=== PATIENT | female | born 1975 | race Asian ===

== ENCOUNTER → 2018-10-03 | Outpatient (CLI) | payer BC ==
[~2018-10-03] MED LIST: IOHEXOL 50 ML IV ONE
== END | disposition home or self-care (01) ==
LOC: SRD 09:10
PROVIDERS: ATTEND Specialist
DX: N92.6 Irregular menstruation, unspecified (principal); N97.9 Female infertility, unspecified
CPT/HCPCS: 74740; C1751; Q9967

== ENCOUNTER 2019-09-20 20:41 | Emergency (ER) | payer BC ==
[~2019-09-20] VITALS: Ht 152.4 cm; Wt 68.0 kg
[2019-09-20 20:46] VITALS: BP_SYST 126
--- NOTE | 2019-09-20 20:51 | NUR ---
Patient triaged and placed in waiting room. VSS and patient appears in no acute distress at this time. Accompanied by , awaiting available bed, and MD notified of need for MSE.
[2019-09-20 21:14] LABS: BILIRUBIN,URINE NEGATIVE (NEGATIVE); BLOOD, URINE NEGATIVE (NEGATIVE); CLARITY/URINE CLEAR (CLEAR); COLOR,URINE YELLOW (YELLOW); GLUCOSE,URINE NEGATIVE (NEGATIVE); KETONES,URINE 1+ (NEGATIVE); LEUKOCYTE ESTERASE ,URINE NEGATIVE (NEGATIVE); NITRITE, URINE NEGATIVE (NEGATIVE); PROTEIN URINE NEGATIVE (NEGATIVE); UROBILINOGEN,URINE 0.2 (0.2-1.0)
--- NOTE | 2019-09-20 23:26 | NUR ---
Patient to ER bed 8 to gown for evaluation. Side rails up.
--- NOTE | 2019-09-20 23:40 | NUR ---
Pt came to the ED for lower ABD pain which started aroun 1400 yesterday. Reports pain is throbbing and burning. States she ahd her HCG level 8 days ago but no ultrasound. Denies bleeding or vaginal discharge. No other complaints/injuries noted. Will cont. to monitor.
--- NOTE | 2019-09-21 | NUR ---
ER at bedside examining patient.
[2019-09-21 00:55] LABS: BASOPHILS % (AUTO) 0.6 % (0.0-2.0); EOSINOPHILS # (AUTO) 0.1 K/uL (0.0-0.4); HEMATOCRIT 39.1 % (36-48); HEMOGLOBIN 13.1 g/dL (12.0-16.0); LYMPHOCYTES # (AUTO) 1.6 K/uL (1.0-5.5); LYMPHOCYTES % (AUTO) 23.7 % (20.5-51.5); MEAN CORPUSCULAR HEMOGLOBIN 31 pg (27-31); MEAN CORPUSCULAR HGB CONC 33 % (32-36); MEAN CORPUSCULAR VOLUME 94 fL (79.0-98.0); MONOCYTES # (AUTO) 0.7 K/uL (0.0-1.0); MONOCYTES % (AUTO) 10.4 % (1.7-9.3); NEUTROPHILS # (AUTO) 4.3 K/uL (1.8-7.7); NEUTROPHILS % (AUTO) 63.3 % (40.0-70.0); PLATELET COUNT (AUTO) 223 K/uL (130-430); RED BLOOD CELL COUNT(AUTO) 4.18 MIL/uL (4.2-6.2); RED CELL DISTRIBUTION WIDTH 12.8 % (9.0-15.0); WHITE BLOOD COUNT (AUTO) 6.8 K/uL (4.8-10.8)
[2019-09-21 01:11] LABS: CREATININE 0.8 mg/dL (0.55-1.30); POTASSIUM 3.6 mmol/L (3.5-5.1)
[2019-09-21 01:37] LABS: ALBUMIN 3.4 g/dL (3.4-4.8)
--- NOTE | 2019-09-21 01:39 | NUR ---
Patient returned from Ultrasound in stable condition.
[2019-09-21 01:48] LABS: TOTAL BILIRUBIN 0.2 mg/dL (0.0-1.0)
--- NOTE | 2019-09-21 02:21 | NUR ---
Patient given written and verbal discharge instructions and verbalizes understanding. ER MD Cary discussed with patient the results and treatment provided. Patient in stable condition. ID arm band removed. No Rx given. Patient educated on pain management and to follow up with PMD. Pain Scale 0.Opportunity for questions provided and answered. Medication side effect fact sheet provided.
[2019-09-21 02:25] VITALS: BP_SYST 123
== END 2019-09-21 02:21 | disposition home or self-care (01) ==
LOC: SED 20:41
DX: O26.891 Other specified pregnancy related conditions, first trimester (principal); R10.2 Pelvic and perineal pain; Z3A.01 Less than 8 weeks gestation of pregnancy
CPT/HCPCS: 36415; 76801; 76817; 80053; 81003; 84702-TC; 85025; 86901; 99284

== ENCOUNTER 2019-10-06 09:23 | Emergency (ER) | payer BC ==
[~2019-10-06] VITALS: Ht 152.4 cm; Wt 68.0 kg
[2019-10-06 09:28] VITALS: BP_SYST 125
--- NOTE | 2019-10-06 09:28 | NUR ---
Patient to ER bed 7 to gown for evaluation. Side rails up.
--- NOTE | 2019-10-06 09:29 | NUR ---
Patient is awake, alert, and oriented x4. Patient reports that she noticed light vaginal bleeding after urinating yesterday, with brown spots showing up after wiping. This morning it was pink when she wiped. Patient is Para 1 0. She is also complaining of mild cramping in lower right abdmomen.
--- NOTE | 2019-10-06 09:36 | NUR ---
ER Dr. Ling at bedside examining patient.
[2019-10-06 10:15] LABS: BASOPHILS % (AUTO) 0.9 % (0.0-2.0); EOSINOPHILS # (AUTO) 0.1 K/uL (0.0-0.4); HEMATOCRIT 43.4 % (36-48); HEMOGLOBIN 14.2 g/dL (12.0-16.0); LYMPHOCYTES # (AUTO) 1.4 K/uL (1.0-5.5); LYMPHOCYTES % (AUTO) 28.5 % (20.5-51.5); MEAN CORPUSCULAR HEMOGLOBIN 31 pg (27-31); MEAN CORPUSCULAR HGB CONC 33 % (32-36); MEAN CORPUSCULAR VOLUME 94 fL (79.0-98.0); MONOCYTES # (AUTO) 0.4 K/uL (0.0-1.0); NEUTROPHILS % (AUTO) 60.6 % (40.0-70.0); PLATELET COUNT (AUTO) 256 K/uL (130-430); RED BLOOD CELL COUNT(AUTO) 4.62 MIL/uL (4.2-6.2); RED CELL DISTRIBUTION WIDTH 13.1 % (9.0-15.0)
[2019-10-06 10:30] LABS: CALCIUM 8.9 mg/dL (8.4-11.0); CREATININE 0.74 mg/dL (0.55-1.30); POTASSIUM 3.8 mmol/L (3.5-5.1)
[2019-10-06 10:37] LABS: PROTHROMBIN TIME 9.9 SECS (9.5-12.5)
--- NOTE | 2019-10-06 10:40 | NUR ---
Patient transported to radiology via wheelchair, accompanied by processing technician.
--- NOTE | 2019-10-06 11:10 | NUR ---
Returned from radiology, back to [facility].
--- NOTE | 2019-10-06 11:54 | NUR ---
Patient given written and verbal discharge instructions and verbalizes understanding. ER MD Ling discussed with patient the results and treatment provided. Patient in stable condition. ID arm band removed. No Rx given. Patient educated on pain management and to follow up with PMD. Pain Scale 0. Opportunity for questions provided and answered. Medication side effect fact sheet provided.
[2019-10-06 11:55] VITALS: BP_SYST 145
[2019-10-06 12:13] LABS: BILIRUBIN,URINE NEGATIVE (NEGATIVE); BLOOD, URINE 1+ (NEGATIVE); CLARITY/URINE CLEAR (CLEAR); COLOR,URINE YELLOW (YELLOW); GLUCOSE,URINE NEGATIVE (NEGATIVE); KETONES,URINE NEGATIVE (NEGATIVE); LEUKOCYTE ESTERASE ,URINE NEGATIVE (NEGATIVE); NITRITE, URINE NEGATIVE (NEGATIVE); PH,URINE 6.5 (5.0-8.0); PROTEIN URINE NEGATIVE (NEGATIVE); UROBILINOGEN,URINE 0.2 (0.2-1.0)
[2019-10-06 12:43] LABS: BACTERIA,URINE RARE /HPF (None Seen); RBC,URINE 0-3 /HPF (0-3); WBC,URINE 0-3 /HPF (0-3)
== END 2019-10-06 11:55 | disposition home or self-care (01) ==
LOC: SED 09:23
DX: O03.9 Complete or unspecified spontaneous abortion without complication (principal); Z3A.01 Less than 8 weeks gestation of pregnancy
CPT/HCPCS: 36415; 76801; 76817; 80048; 81000-TC; 84702-TC; 85025; 85610-TC; 85730-TC; 86900; 86901; 99284